=== PATIENT | male | born 1985 | race Hispanic/Latino ===

== ENCOUNTER 2016-11-11 17:10 | Emergency (ER) | payer SELFPAY ==
[2016-11-11 17:26] VITALS: BP 149/95
[2016-11-11 18:22] LABS: Basophils % (Auto) 0.4 % (0.0-1.8); Eosinophils % (Auto) 1.2 % (0.0-4.3); Hematocrit 49.6 % (35.5-45.6); Hemoglobin 16.2 gm/dl (11.8-15.2); Mean Corpuscular HGB Conc 33 % (32-34); Mean Corpuscular Hemoglobin 30 pg (28-32); Mean Corpuscular Volume 91 fl (84-94); Platelet Count 221 K/mm3 (140-440); Red Blood Count 5.45 M/mm3 (3.65-5.03); Red Cell Distribution Width 14.2 % (13.2-15.2); White Blood Count 9.3 K/mm3 (4.5-11.0)
[2016-11-11 18:45] LABS: Anion Gap 18 mmol/L; BUN/Creatinine Ratio 7.77; Blood Urea Nitrogen 7 mg/dL (9-20); Calcium 9.2 mg/dL (8.4-10.2); Carbon Dioxide 26 mmol/L (22-30); Chloride 101.3 mmol/L (98-107); Glucose 101 mg/dL (75-100); Potassium 4.2 mmol/L (3.6-5.0); Sodium 141 mmol/L (137-145)
--- NOTE | 2016-11-12 19:21 | ED Elopement Review ---
ED Pt Elopement review - Results review Lab results: Laboratory Tests 11/11/16 11/11/16 18:10 18:10 WBC 9.3 RBC 5.45 H Hgb 16.2 H Hct 49.6 H MCV 91 MCH 30 MCHC 33 RDW 14.2 Plt Count 221 Lymph % (Auto) 25.2 [place] % (Auto) 6.4 Eos % (Auto) 1.2 Baso % (Auto) 0.4 Lymph # 2.3 [place] # 0.6 Eos # 0.1 Baso # 0.0 Seg Neutrophils % 66.8 Seg Neutrophils # 6.2 Sodium 141 Potassium 4.2 Chloride 101.3 Carbon Dioxide 26 Anion Gap 18 BUN 7 L Creatinine 0.9 Estimated GFR > 60 BUN/Creatinine Ratio 7.77 Glucose 101 H Calcium 9.2 Troponin T < 0.010 - Call Back decision Pt Call Back Decision: No action required
== END 2016-11-11 21:10 | disposition left against medical advice (07) ==
LOC: ED 17:10
DX: R07.9 Chest pain, unspecified (principal); Z53.21 Procedure and treatment not carried out due to patient leaving prior to being seen by health care provider
CPT/HCPCS: 36415; 80048; 84484; 85025; 93005; 93010

== ENCOUNTER 2019-05-19 20:46 | Emergency (ER) | payer SELFPAY ==
--- NOTE | 2019-05-19 21:24 | Emergency Department Report ---
ED ENT HPI - General Chief complaint: Dental/Oral Stated complaint: MOUTH PAIN, ANXIETY, FATIGUE Time Seen by Provider: 05/19/19 21:19 Source: patient Mode of arrival: Ambulatory Limitations: No Limitations - History of Present Illness Initial comments: pt is a 34 yo male that presents with with left lower and left upper dental pain that began two days ago. pt last saw a dentist two years ago. states he has an appointment with a dentist next week. no fever. no difficulty swallowing or tolerating secretions. PMHx HTN. no allergies to meds. - Related Data Previous Rx's Medication Instructions Recorded Last Taken Type Lisinopril [Zestril TAB] 10 mg PO QDAY #60 tablet 09/20/13 Unknown Rx Naproxen [Naprosyn] 250 mg PO BID #20 tablet 07/01/14 Unknown Rx ALPRAZolam [Xanax TAB] 1 mg PO BID PRN #14 tab 11/11/14 Unknown Rx LORazepam [Ativan] 1 mg PO BID PRN #18 tablet 02/20/15 Unknown Rx Acetaminophen/Codeine [Tylenol 1 tab PO Q6H PRN #10 tab 05/19/19 Unknown Rx /Codeine # 3 tab] Clindamycin [Clindamycin CAP] 450 mg PO TID 7 Days #63 capsule 05/19/19 Unknown Rx Ibuprofen [Motrin 600 MG tab] 600 mg PO Q8H PRN #20 tablet 05/19/19 Unknown Rx Nystas/Diphen/Xyl Visc/Mylanta 30 ml MM TID PRN #480 ml 05/19/19 Unknown Rx [Magic Mouthwash] Penicillin Vk [Veetids TAB] 500 mg PO QID 7 Days #56 tablet 05/19/19 Unknown Rx Allergies Allergy/AdvReac Type Severity Reaction Status Date / Time No Known Allergies Allergy Verified 05/19/19 20:49 ED Dental HPI - General Chief complaint: Dental/Oral Stated complaint: MOUTH PAIN, ANXIETY, FATIGUE Time Seen by Provider: 05/19/19 21:19 Source: patient Mode of arrival: Ambulatory Limitations: No Limitations - Related Data Previous Rx's Medication Instructions Recorded Last Taken Type Lisinopril [Zestril TAB] 10 mg PO QDAY #60 tablet 09/20/13 Unknown Rx Naproxen [Naprosyn] 250 mg PO BID #20 tablet 07/01/14 Unknown Rx ALPRAZolam [Xanax TAB] 1 mg PO BID PRN #14 tab 11/11/14 Unknown Rx LORazepam [Ativan] 1 mg PO BID PRN #18 tablet 02/20/15 Unknown Rx Acetaminophen/Codeine [Tylenol 1 tab PO Q6H PRN #10 tab 05/19/19 Unknown Rx /Codeine # 3 tab] Clindamycin [Clindamycin CAP] 450 mg PO TID 7 Days #63 capsule 05/19/19 Unknown Rx Ibuprofen [Motrin 600 MG tab] 600 mg PO Q8H PRN #20 tablet 05/19/19 Unknown Rx Nystas/Diphen/Xyl Visc/Mylanta 30 ml MM TID PRN #480 ml 05/19/19 Unknown Rx [Magic Mouthwash] Penicillin Vk [Veetids TAB] 500 mg PO QID 7 Days #56 tablet 05/19/19 Unknown Rx Allergies Allergy/AdvReac Type Severity Reaction Status Date / Time No Known Allergies Allergy Verified 05/19/19 20:49 ED Review of Systems ROS: Stated complaint: MOUTH PAIN, ANXIETY, FATIGUE Other details as noted in HPI Comment: All other systems reviewed and negative ED Past Medical Hx - Past Medical History Hx Hypertension: Yes Hx Psychiatric Treatment: Yes (Anxiety; [facility] dx pt with schizophrenia in 2008 pt denies dx) Additional medical history: Dental caries - Surgical History Additional Surgical History: abstracted 3 teeth - Social History Smoking Status: Current Every Day Smoker Substance Use Type: Alcohol, Prescribed - Medications Home Medications: Home Medications Medication Instructions Recorded Confirmed Last Taken Type Lisinopril [Zestril TAB] 10 mg PO QDAY #60 tablet 09/20/13 02/16/16 Unknown Rx Naproxen [Naprosyn] 250 mg PO BID #20 tablet 07/01/14 02/16/16 Unknown Rx ALPRAZolam [Xanax TAB] 1 mg PO BID PRN #14 tab 11/11/14 02/16/16 Unknown Rx LORazepam [Ativan] 1 mg PO BID PRN #18 tablet 02/20/15 02/16/16 Unknown Rx Acetaminophen/Codeine [Tylenol 1 tab PO Q6H PRN #10 tab 05/19/19 Unknown Rx /Codeine # 3 tab] Clindamycin [Clindamycin CAP] 450 mg PO TID 7 Days #63 capsule 05/19/19 Unknown Rx Ibuprofen [Motrin 600 MG tab] 600 mg PO Q8H PRN #20 tablet 05/19/19 Unknown Rx Nystas/Diphen/Xyl Visc/Mylanta 30 ml MM TID PRN #480 ml 05/19/19 Unknown Rx [Magic Mouthwash] Penicillin Vk [Veetids TAB] 500 mg PO QID 7 Days #56 tablet 05/19/19 Unknown Rx ED Physical Exam - General Limitations: No Limitations General appearance: alert, in no apparent distress - Head Head exam: Present: atraumatic, normocephalic - Eye Eye exam: Present: normal appearance - ENT ENT exam: Present: mucous membranes moist, other (very poor dentition, several missing teeth, several areas of necrosis, several cracked teeth, uvula is midline, no uvular edema) - Respiratory Respiratory exam: Present: normal lung sounds bilaterally. Absent: respiratory distress, wheezes, rales, rhonchi, stridor, chest wall tenderness, accessory muscle use, decreased breath sounds, prolonged expiratory - Cardiovascular Cardiovascular Exam: Present: regular rate, normal rhythm, normal heart sounds. Absent: systolic murmur, diastolic murmur, rubs, gallop - Neurological Exam Neurological exam: Present: alert, oriented X3 - Psychiatric Psychiatric exam: Present: normal affect, normal mood - Skin Skin exam: Present: warm, dry, intact ED Course Vital Signs 05/19/19 05/19/19 21:19 21:24 Temperature 98.8 F Pulse Rate 111 H 100 H Respiratory 18 16 Rate Blood Pressure 149/100 Blood Pressure 133/89 [Left] O2 Sat by Pulse 97 Oximetry ED Medical Decision Making - Medical Decision Making pt is a 34 yo male that presents with with left lower and left upper dental pain that began two days ago. pt last saw a dentist two years ago. states he has an appointment with a dentist next week. no fever. no difficulty swallowing or tolerating secretions. PMHx HTN. no allergies to meds. repeat vitals stable. on exam: very poor dentition, several missing teeth, several areas of necrosis, several cracked teeth, uvula is midline, no uvular edema, no obvious dental abscess visualized or palpable. pt given prescription for abx, pain meds, anti- inflammatory. pt states his mouth is also sore given magic mouthwash. advised pt to please take medication as prescribed. do not drive or operate heavy machinery while taking pain medication. follow up with the dentist in the next 3-5 days. return to the emergency room for any new or worsening symptoms. Critical care attestation.: If time is entered above; I have spent that time in minutes in the direct care of this critically ill patient, excluding procedure time. ED Disposition Clinical Impression: Dental caries, Necrotic tooth, Cracked tooth Disposition: TO HOME OR SELFCARE Is pt being admited?: No Does the pt Need Aspirin: No Condition: Stable Instructions: Dental Caries (ED) Additional Instructions: please take medication as prescribed. do not drive or operate heavy machinery while taking pain medication. follow up with the dentist in the next 3-5 days. return to the emergency room for any new or worsening symptoms. Prescriptions: Clindamycin [Clindamycin CAP] 450 mg PO TID 7 Days #63 capsule Nystas/Diphen/Xyl Visc/Mylanta [Magic Mouthwash] 30 ml MM TID PRN #480 ml PRN Reason: mouth pain Ibuprofen [Motrin 600 MG tab] 600 mg PO Q8H PRN #20 tablet PRN Reason: Pain Acetaminophen/Codeine [Tylenol /Codeine # 3 tab] 1 tab PO Q6H PRN #10 tab PRN Reason: Pain , Severe (7-10) Penicillin Vk [Veetids TAB] 500 mg PO QID 7 Days #56 tablet Referrals: your, dentist [Other] - 3-5 Days Time of Disposition: 21:26 Print Language: YI
[2019-05-19 21:25] VITALS: BP 133/89
== END 2019-05-19 22:00 | disposition home or self-care (01) ==
LOC: ED 20:46
DX: K02.9 Dental caries, unspecified (principal); K03.81 Cracked tooth; I10 Essential (primary) hypertension; F41.9 Anxiety disorder, unspecified; F20.9 Schizophrenia, unspecified; F17.200 Nicotine dependence, unspecified, uncomplicated; Z79.899 Other long term (current) drug therapy
CPT/HCPCS: 99282

== ENCOUNTER 2021-10-08 12:03 | Emergency (ER) | payer SELFPAY | END 2021-10-08 16:39 | disposition left against medical advice (07) | LOC: ED 12:03 | DX: K46.9 Unspecified abdominal hernia without obstruction or gangrene (principal); Z53.21 Procedure and treatment not carried out due to patient leaving prior to being seen by health care provider ==